=== PATIENT | female | born 1995 | race Caucasian/White ===

== ENCOUNTER 2017-06-07 12:29 | Inpatient (IN) | payer BC ==
[2017-06-07] MEDS ORDERED: LORazepam TAB(*) 1 MG PO ONE (12:45)
[2017-06-07 13:47] LABS: ALT 29 U/L (7-52); AST 21 U/L (13-39); Albumin 3.9 g/dL (3.2-5.2); Alkaline Phosphatase 43 U/L (34-104); Anion Gap 4 mmol/L (2-11); BUN/Creatinine Ratio 9.2 (8-20); Blood Urea Nitrogen 6 mg/dL (6-24); CO2 Carbon Dioxide 28 mmol/L (22-32); Calcium 8.5 mg/dL (8.6-10.3); Chloride 104 mmol/L (101-111); EGFR African American 146.6 (>60); Globulin 2.5 g/dL (2-4); Glucose 87 mg/dL (70-100); Potassium 3.6 mmol/L (3.5-5.0); Sodium 136 mmol/L (133-145); Total Protein 6.4 g/dL (6.4-8.9)
[2017-06-07 13:55] LABS: Urine Bacteria Absent (Absent); Urine Bilirubin Negative (Negative); Urine Glucose Negative (Negative); Urine Nitrite Negative (Negative)
[2017-06-07 14:09] LABS: Benzodiazepine Urine Screen None Detected (None Detect)
[2017-06-07 14:11] LABS: Hematocrit 39 % (35-47); Hemoglobin 13.2 g/dl (12.0-16.0); Mean Corpuscular HGB Conc 34 g/dl (31-36); Mean Corpuscular Hemoglobin 29 pg (27-31); Mean Corpuscular Volume 86 fL (80-97); Mean Platelet Volume 9 um3 (7.4-10.4); Red Blood Count 4.52 10^6/ul (4.0-5.4); Red Cell Distribution Width 13 % (10.5-15)
[2017-06-07 14:13] LABS: Acetaminophen < 15 mcg/mL; Alcohol < 10 mg/dL (<10); Salicylate < 2.50 mg/dL (<30)
[2017-06-07 14:41] LABS: Free T4 < 0.25 ng/dL (0.61-1.12)
--- NOTE | 2017-06-07 15:00 | ED ---
Psychiatric Complaint - HPI Summary HPI Summary: Patient presents to the ED with CC of depression, anxiety and suicidal ideations. She states she has been dealing with this issues for 6-7 months and has tried to take anti-depressants but does not like how it makes her feels, so DC'd. Has never been on anti-anxiety medications. She denies HI. She states she has a"plan" but notes it is much farther in the future once she has all her affairs in order and denies anything currently. Denies HI. Denies self harm. Hx of cheng's and is refusing to take her medication. Denies any physical pain today. Denies SOB, chest discomfort, N/V/C/D. Denies fevers, sweats or chills. - History Of Current Complaint Chief Complaint: [facility]entalHealth Time Seen by Provider: 06/07/17 12:37 Hx Obtained From: Patient Hx Last Menstrual Period: 05/01/15 ?: No Timing: Constant Severity Initially: Moderate Severity Currently: Moderate Character: Depressed, Anxious Aggravating Factor(s): Recent Stress, Medication Non-compliance Alleviating Factor(s): Nothing Associated Signs And Symptoms: Positive: Negative Related History: Positive For: Prior Psychiatric Issues Has Suicidal: Reports: Thoughts, With A Plan - future plans - Risk Factor(s) Completed Suicide Risk Factors: Negative - Allergies/Home Medications Allergies/Adverse Reactions: Allergies Allergy/AdvReac Type Severity Reaction Status Date / Time No Known Allergies Allergy Verified 05/01/16 10:00 Home Medications: Home Medications Thyroid [Nature-Throid] 195 mg PO DAILY 06/07/17 [History Confirmed 06/07/17] PMH/Surg Hx/FS Hx/Imm Hx Previously Healthy: Yes Endocrine/Hematology History: Reports: Hx Thyroid Disease Denies: Hx Anticoagulant Therapy, Hx Diabetes Cardiovascular History: Denies: Hx Hypertension, Hx Pacemaker/ICD Respiratory History: Denies: Hx Asthma, Hx Chronic Obstructive Pulmonary Disease (COPD) GI History: Denies: Hx Ulcer History: Denies: Hx Renal Disease Sensory History: Denies: Hx Hearing Aid Neurological History: Denies: Hx Dementia, Hx Seizures Psychiatric History: Reports: Hx Panic Disorder - PANIC ATTACKS Denies: Hx Eating Disorder, Hx Substance Abuse - Surgical History Surgery Procedure, Year, and Place: RIGHT KNEE SURGERY 05/2010 - Immunization History Hx Pertussis Vaccination: No Immunizations Up to Date: Yes Infectious Disease History: No Infectious Disease History: Denies: Hx Hepatitis, Hx Human Immunodeficiency Virus (HIV), Traveled Outside the [place] in Last 30 Days - Social History Occupation: Employed Part-time Lives: With Family Alcohol Use: Weekly Hx Substance Use: Yes Substance Use Type: Reports: Marijuana Substance Use Comment - Amount & Last Used: daily Hx Tobacco Use: No Smoking Status (MU): Never Smoked Tobacco Review of Systems Constitutional: Negative Eyes: Negative Cardiovascular: Negative Respiratory: Negative Genitourinary: Negative Positive: no symptoms reported, see HPI Skin: Negative Positive: Anxious, Depressed All Other Systems Reviewed And Are Negative: Yes Physical Exam Triage Information Reviewed: Yes Vital Signs On Initial Exam: Initial Vitals Temp Pulse Resp BP Pulse Ox 98.7 F 74 20 119/83 100 06/07/17 12:31 06/07/17 12:31 06/07/17 12:31 06/07/17 12:31 06/07/17 12:31 Vital Signs Reviewed: Yes Appearance: Positive: Well-Appearing, Well-Nourished Skin: Positive: Warm, Skin Color Reflects Adequate Perfusion Head/Face: Positive: Normal Head/Face Inspection Eyes: Positive: EOMI, ANTOINETTE, Conjunctiva Clear Neck: Positive: Supple, No Lymphadenopathy Respiratory/Lung Sounds: Positive: Clear to Auscultation, Breath Sounds Present Cardiovascular: Positive: Normal, RRR, Pulses are Symmetrical in both Upper and Lower Extremities Musculoskeletal: Positive: Normal, Strength/ROM Intact Neurological: Positive: Speech Normal Psychiatric: Positive: Anxious, Depressed - Randee Coma Scale Coma Scale Total: 15 Diagnostics - Vital Signs Vital Signs Temp Pulse Resp BP Pulse Ox 06/07/17 12:52 17 06/07/17 12:31 98.7 F 74 20 119/83 100 - Laboratory Lab Results: Lab Results 06/07/17 06/07/17 06/07/17 Range/Units 13:07 13:07 13:35 WBC 4.0 (3.5-10.8) 10^3/ul RBC 4.52 (4.0-5.4) 10^6/ul Hgb 13.2 (12.0-16.0) g/dl Hct 39 (35-47) % MCV 86 (80-97) fL MCH 29 (27-31) pg MCHC 34 (31-36) g/dl RDW 13 (10.5-15) % Plt Count 215 (150-450) 10^3/ul MPV 9 (7.4-10.4) um3 Neut % (Auto) 59.0 (38-83) % Lymph % (Auto) 32.8 (25-47) % [place] % (Auto) 5.1 (1-9) % Eos % (Auto) 2.5 (0-6) % Baso % (Auto) 0.6 (0-2) % Absolute Neuts (auto) 2.4 (1.5-7.7) 10^3/ul Absolute Lymphs (auto) 1.3 (1.0-4.8) 10^3/ul Absolute Monos (auto) 0.2 (0-0.8) 10^3/ul Absolute Eos (auto) 0.1 (0-0.6) 10^3/ul Absolute Basos (auto) 0 (0-0.2) 10^3/ul Absolute Nucleated RBC 0.01 10^3/ul Nucleated RBC % 0.2 Sodium 136 (133-145) mmol/L Potassium 3.6 (3.5-5.0) mmol/L Chloride 104 (101-111) mmol/L Carbon Dioxide 28 (22-32) mmol/L Anion Gap 4 (2-11) mmol/L BUN 6 (6-24) mg/dL Creatinine 0.65 (0.51-0.95) mg/dL Est GFR ( Amer) 146.6 (>60) Est GFR (Non-Af Amer) 114.0 (>60) BUN/Creatinine Ratio 9.2 (8-20) Glucose 87 (70-100) mg/dL Calcium 8.5 L (8.6-10.3) mg/dL Total Bilirubin 0.30 (0.2-1.0) mg/dL AST 21 (13-39) U/L ALT 29 (7-52) U/L Alkaline Phosphatase 43 (34-104) U/L Total Protein 6.4 (6.4-8.9) g/dL Albumin 3.9 (3.2-5.2) g/dL Globulin 2.5 (2-4) g/dL Albumin/Globulin Ratio 1.6 (1-3) TSH Pending Free T4 < 0.25 L (0.61-1.12) ng/dL Urine Color Urine Appearance Urine pH (5-9) Ur Specific Lillie (1.010-1.030) Urine Protein (Negative) Urine Ketones (Negative) Urine Blood (Negative) Urine Nitrate (Negative) Urine Bilirubin (Negative) Urine Urobilinogen (Negative) Ur Leukocyte Esterase (Negative) Urine WBC (Auto) (Absent) Urine RBC (Auto) (Absent) Ur Squamous Epith Cells (Absent) Urine Bacteria (Absent) Urine Glucose (Negative) Salicylates < 2.50 (<30) mg/dL Urine Opiates Screen None detected (None Detect) Acetaminophen < 15 mcg/mL Ur Barbiturates Screen None detected (None Detect) Ur Phencyclidine Scrn None detected (None Detect) Ur Amphetamines Screen None detected (None Detect) U Benzodiazepines Scrn None detected (None Detect) Urine Cocaine Screen None detected (None Detect) U Cannabinoids Screen Presumptive positive H (None Detect) Serum Alcohol < 10 (<10) mg/dL 06/07/17 Range/Units 13:35 WBC (3.5-10.8) 10^3/ul RBC (4.0-5.4) 10^6/ul Hgb (12.0-16.0) g/dl Hct (35-47) % MCV (80-97) fL MCH (27-31) pg MCHC (31-36) g/dl RDW (10.5-15) % Plt Count (150-450) 10^3/ul MPV (7.4-10.4) um3 Neut % (Auto) (38-83) % Lymph % (Auto) (25-47) % [place] % (Auto) (1-9) % Eos % (Auto) (0-6) % Baso % (Auto) (0-2) % Absolute Neuts (auto) (1.5-7.7) 10^3/ul Absolute Lymphs (auto) (1.0-4.8) 10^3/ul Absolute Monos (auto) (0-0.8) 10^3/ul Absolute Eos (auto) (0-0.6) 10^3/ul Absolute Basos (auto) (0-0.2) 10^3/ul Absolute Nucleated RBC 10^3/ul Nucleated RBC % Sodium (133-145) mmol/L Potassium (3.5-5.0) mmol/L Chloride (101-111) mmol/L Carbon Dioxide (22-32) mmol/L Anion Gap (2-11) mmol/L BUN (6-24) mg/dL Creatinine (0.51-0.95) mg/dL Est GFR ( Amer) (>60) Est GFR (Non-Af Amer) (>60) BUN/Creatinine Ratio (8-20) Glucose (70-100) mg/dL Calcium (8.6-10.3) mg/dL Total Bilirubin (0.2-1.0) mg/dL AST (13-39) U/L ALT (7-52) U/L Alkaline Phosphatase (34-104) U/L Total Protein (6.4-8.9) g/dL Albumin (3.2-5.2) g/dL Globulin (2-4) g/dL Albumin/Globulin Ratio (1-3) TSH Free T4 (0.61-1.12) ng/dL Urine Color Yellow Urine Appearance Cloudy Urine pH 6.0 (5-9) Ur Specific Lillie 1.011 (1.010-1.030) Urine Protein Negative (Negative) Urine Ketones Negative (Negative) Urine Blood 2+ H (Negative) Urine Nitrate Negative (Negative) Urine Bilirubin Negative (Negative) Urine Urobilinogen Negative (Negative) Ur Leukocyte Esterase Trace H (Negative) Urine WBC (Auto) Trace(0-5/hpf) (Absent) Urine RBC (Auto) Trace(0-2/hpf) (Absent) Ur Squamous Epith Cells Present H (Absent) Urine Bacteria Absent (Absent) Urine Glucose Negative (Negative) Salicylates (<30) mg/dL Urine Opiates Screen (None Detect) Acetaminophen mcg/mL Ur Barbiturates Screen (None Detect) Ur Phencyclidine Scrn (None Detect) Ur Amphetamines Screen (None Detect) U Benzodiazepines Scrn (None Detect) Urine Cocaine Screen (None Detect) U Cannabinoids Screen (None Detect) Serum Alcohol (<10) mg/dL Result Diagrams: 06/07/17 13:07 06/07/17 13:07 Lab Statement: Any lab studies that have been ordered have been reviewed, and results considered in the medical decision making process. Course/Dx - Course Course Of Treatment: Patient evaluated for SI and depression. She is sent to [facility] for mental health evaluation. She denies pain, refusing to take her medications at home. She is cleared for MHU. Stable on arrival to [facility] and VS stable. - Differential Dx/Clinical Impression Differential Diagnosis/HQI/PQRI: Positive: Suicide Attempt, Suicidal Ideation, Suicidal Gesture Provider Diagnosis: Suicidal ideation Discharge - Discharge Plan Condition: Stable Disposition: OTHER Discharge Disposition Comment: sent to [facility] unit at this time.
[2017-06-07] MEDS ORDERED: LORazepam INJ* 2 MG/ML 1 ML VIAL ONE (21:11)
[2017-06-07] MEDS: LORazepam INJ* 2 MG/ML 1 ML VIAL IM ONE ×2 (21:16→23:44)
[2017-06-07] MEDS ORDERED: Thyroid TAB* 120 MG PO ONE (22:11)
--- NOTE | 2017-06-07 22:51 | PN ---
Progress Note - Progress Note Date of Service: 06/07/17 Note: Saw pt in a brief visit due to pt's problems and questions about her thyroid replacement tx. Pt had not taken Nature thyroid (which she usually takes 3 grains/day) due to medication shortage. We were able to find in our hospital pharmacy Nancy Thyroid- another preparation of T4 and T3 replacement. Pt voiced multiple concerns that she has to know the "math behind it: re: conversion from Nature Thyroid to Nancy Thyroid. I spoke with pt about our pharmacist being the most capable person in converting the med and preparing the right dose for pt. spoke with our pharmacist and the conversion is 1:1 and pt will be receiving 3 grains of Nancy thyroid daily starting tonight. Next TSH should be checked in 4-6 weeks. Pt mentioned how she "doesn't trust anyone" and is very concerned that her thyroid problems will be delaying her psychiatric tx. overall 20 min were spent on visit ( in face to face with pt and 10 in documentation and conversation with the pharmacist)
[2017-06-08] MEDS ORDERED: Thyroid TAB* 120 MG PO ONE (08:54)
[2017-06-08] MEDS ORDERED: LORazepam TAB(*) 1 MG PO ONE (09:50)
[2017-06-08] MEDS ORDERED: Haloperidol INJ IV/IM* 5 MG/ML AMP IM ONE (10:10)
[2017-06-08] MEDS ORDERED: Al Hydrox/Mg Hydrox/Simet LIQ* 30 ML UDC PO PRN (11:24)
[2017-06-08] MEDS ORDERED: Acetaminophen TAB* 325 MG PO PRN (11:24)
[2017-06-09] MEDS ORDERED: diPHENhydraMINE IV* 50 MG/ML 1 ml VIAL (BENADRYL) IM ONE (00:50)
[2017-06-09] MEDS ORDERED: diPHENhydraMINE IV* 50 MG/ML 1 ml VIAL (BENADRYL) ONE (00:55)
[2017-06-09] MEDS: Thyroid TAB* 120 MG PO SCH (08:28)
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
[2017-06-09 17:41] LABS: Cholesterol 188 mg/dL; LDL Cholesterol 108 mg/dL; Triglycerides 93 mg/dL
[2017-06-09] MEDS: diPHENhydraMINE PO* 50 MG PO SCH (20:17)
[2017-06-10] MEDS: Thyroid TAB* 120 MG PO SCH (08:13)
[2017-06-10] MEDS ORDERED: Ondansetron ODT TAB* 4 MG SL ONE (16:30)
[2017-06-10] MEDS ORDERED: Ondansetron INJ* 2 MG/ML VIAL IM ONE (17:00)
[2017-06-10] MEDS: LORazepam INJ* 2 MG/ML 1 ML VIAL IM SCH (21:43)
[2017-06-10] MEDS: diPHENhydraMINE PO* 50 MG PO SCH (21:44)
[2017-06-11] MEDS: Thyroid TAB* 120 MG PO SCH (08:05)
--- NOTE | 2017-06-11 08:11 | PN ---
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 She developed this in the 11th or 12th grade. She didn't tolerate levothyroxine "I hated it". It caused digestive problems. She went for 6 years without taking any thyroid hormone. She states she is bad at taking pills and "they couldn't tell me what is in it". She was very depressed. She found a practitioner in [place] who would provide Nature Thyroid and felt great on this. She was taking 3 grains per day. However, this preparation became back ordered and she didn't tolerate [place] thyroid - "It gave me energy, but made me angry". She has many symptoms of hypothyroidism - Digestion: very slow - constipation and also slow digestion of food "I can feel my dinner from last night". She is cold intolerant "I am freezing a lot". While not on thyroid hormone she requires 13 hours of sleep and has little energy. She is depressed and "I have crazy mood swings". She worried recently if she was schizophrenic because of psychotic symptoms. She doesn't shower to prevent dry skin. She was on depot provera and just had her first period in 2 years. She has occasional palpitations. Active Problems: Active Problems Myxedema (Acute) E03.9 Psychosis (Acute) Affective disorder, major (Chronic) F32.9 Richard's thyroiditis (Chronic) E06.3 Current Medications: Current Medications Acetaminophen (Tylenol Tab*) 650 mg PO Q4H PRN PRN Reason: for pain; or Temp >101 F Al Hydrox/Mg Hydrox/Simethicone (Maalox Plus*) 30 ml PO Q4H PRN PRN Reason: INDIGESTION Diphenhydramine HCl (Benadryl Po*) 50 mg PO BEDTIME [facility] Last Admin: 06/10/17 21:44 Dose: Not Given Lorazepam (Ativan Inj*) 2 mg IM 2100 [facility] Last Admin: 06/10/17 21:43 Dose: 2 mg Thyroid (Thyroid Tab*) 120 mg PO DAILY [facility] Last Admin: 06/10/17 08:13 Dose: 120 mg Past Medical History: Surgery - arthroscopc right ACL and meniscus repair No other hospitalizations. Home Medications: Home Medications Medication Instructions Recorded Confirmed Type Thyroid [Nature-Throid] 195 mg PO DAILY 06/07/17 06/07/17 History Allergies: Allergies Allergy/AdvReac Type Severity Reaction Status Date / Time Levothyroxine Allergy Unknown Verified 06/08/17 21:27 [From Synthroid] Reaction Details - Family History Family History: FH Hypothyroidism - Mother and maternal uncle. No other autoimmune disease - though she has a sister with sleep paralysis ( narcolepsy can be autoimmune) She has a sister with bipolar disorder, suspects her parents may also have mental health problems but they have not sought professional help. Substance abuse - maternal uncle - alcoholism. Mother alcoholism. Sister - alcoholism. 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 [employer] Objective - Vital Signs Vital Signs: Vital Signs 06/10/17 06/10/17 21:43 22:41 Respiratory 16 16 Rate - Intake and Output Intake and Output: Intake & Output 06/08/17 06/09/17 06/10/17 06/11/17 11:59 11:59 11:59 11:59 Weight 115 lb 115 lb ADLs: Meal Record Start: 06/08/17 14: 42 Freq: Status: Active Created 06/08/17 14:42 System (Rec: 06/08/17 14:42 System [id number]) Intake and Output Start: 06/07/17 12: 33 Freq: Status: Active Created 06/07/17 12:33 System (Rec: 06/07/17 12:33 System [id number]) - Physical Exam General: No Cyanosis, No Anemia, No Jaundice, No Clubbing Thyroid Function: Clinically Hypothyroid - Myxedematous skin -: Yes Tremor, No Goiter, No Thyroid Nodule, No Thyroid Bruit, No Thyroid Tenderness, No Hoarseness, No Cervical adenopathy, No Supraclav. adenopathy, No Proptosis, No Conjunctival Injection, No Lid Lag, No Periorbital Edema, No Dysconjugate Eye Movement Endocrine: No Central Obesity, No Hirsuitism, No Virilism, No Acromegaly, No Vitiligo, No Flushing, No Acanthosis nigricans, No Violaceious striae, No [place] Syndrome, No Buccal pigmenatation, No Pratt Crease Pigmentation Results - Results Lab Results: Laboratory Results - last 24 hr 06/10/17 06/10/17 08:08 08:08 ESR 9 Thyroid Peroxidase Ab 272.11 H Laboratory Tests 06/07/17 06/07/17 06/07/17 13:07 13:07 13:07 WBC 4.0 Hgb 13.2 Hct 39 MCV 86 Plt Count 215 ESR Sodium 136 Potassium 3.6 Chloride 104 Carbon Dioxide 28 Anion Gap 4 BUN 6 Creatinine 0.65 Est GFR (Non-Af Amer) 114.0 Glucose 87 Hemoglobin A1c 4.9 Calcium 8.5 L Total Bilirubin 0.30 AST 21 ALT 29 Triglycerides 93 Cholesterol 188 LDL Cholesterol 108 HDL Cholesterol 61.0 TSH 188.80 H Free T4 < 0.25 L Beta HCG, Quant < 0.60 06/10/17 08:08 WBC Hgb Hct MCV Plt Count ESR 9 Sodium Potassium Chloride Carbon Dioxide Anion Gap BUN Creatinine Est GFR (Non-Af Amer) Glucose Hemoglobin A1c Calcium Total Bilirubin AST ALT Triglycerides Cholesterol LDL Cholesterol HDL Cholesterol TSH Free T4 Beta HCG, Quant Other Results/Reports: Assessment - Problem List Assessment: Patient Problems Myxedema (Acute) Psychosis (Acute) Affective disorder, major (Chronic) Richard's thyroiditis (Chronic) Plan: Myxedema (Acute)/'Psychosis (Acute) This patient presents with what Marck Ley termed "Myxedematous Madness" (Br Med J. 1948May 03;2(1757):196-15. Myxoedematous madness. 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 She recognizes she has had psychosis and was worried she has schizophrenia. She is well aware of her diagnosis of Richard's thyroiditis and primary hypothyroidism. She has profound absence of thyroid hormone by her blood work. I discussed with her the pathophysiology, clinical manifestations, endocrinology of hypothyroidism. In particular, I suggested to her the levothyroxine is a more physiological approach to management than Nature thyroid. If she is intolerant of the plastic dolls mold filler the synthetic thyroid hormone tablets, she should take tirosint which is absent of these fillers. She agrees to this. By weight her calculated dose of thyroid hormone is 88 mcg qdaily (1.7 x weight in Kilograms). I discussed the historical use of liothyronine in psychiatry for depression - both as a primary treatment and for augmentation. She may have been self medicating with T3 in Nature thyroid. Affective disorder, major (Chronic) She wonders if she has bipolar affective disorder, but recognizes this cannot be diagnosed when she is profoundly hypothyroid. She is relieved to learn she is unlikely to have schizophrenia. Richard's thyroiditis (Chronic) She has positive TPO antibodies confirming the diagnosis. I do not think she has Richard's encephalopathy as she is not encephalopathic. I will look for other organ specific autoimmune disease. I discussed the above with the patient and she agrees to follow with me next week as an outpatient at my medical office. 1 hour consultation - complex. *
--- NOTE | 2017-06-11 08:43 | PN ---
Subjective - Subjective Service Type: 44908 Hosp care 15 min low complexity Subjective: NOTE FOR 06/10/17 Encounter: Patient noted to be visible in the milieu, social with female peers, attending groups. Patient has maintained a bright affect since admission. Patient reports improved mood, but reports worsening insomnia. She also reports constipation and abdominal pain as she feels distended from previous meals not moving. Will monitor. Patient reports also nausea and reports she in the past vomits all her meals when she is constipated to this extent. Patient amenable to IM Zofran x1 for nausea and IM Ativan x 1 at bedtime for insomnia. Patient denies SI/HI and AH/VH. She was informed Endocrinology would be by to see her tomorrow. Objective - Appearance Appearance: Well Developed/Nourished, Thin Framed Dysmorphic Features: No Hygiene: Normal Grooming: Well Kept - Behavior Psychomotor Activities: Normal Exhibits Abnormal Movement: No - Attitude and Relatedness Attitude and Relatedness: Cooperative Eye Contact: Good - Speech Quality: Unpressured Latencies: Normal Quantity: Appropriate - Mood Patient's Decription of Mood: "Good" - Affect Observed Affect: Expansive Affect Consistent with: Euthymia - Thought Process Patient's Thought Process: Coherent Thought Content: No Passive Wish, No Suicidal Planning, No Homicidal Ideation, No Paranoid Ideation - Sensorium Experiencing Hallucinations: No, Sensorium is Clear Type of Hallucinations: Visual: No, Auditory: No, Command: No - Level of Consciousness Level of Consciousness: Alert Orientation: Yes Intact, Yes Orientated to Time, Yes Orientated to Place, Yes Orientated to Person - Impulse Control Impulse Control: Intact - Insight and Judgement Insight and Judgement: Fair - Group Participation Particating in Group Activities: Yes - Medication Management Medication Management Adherence: Yes Assessment - Assessment Merits Inpatient Hospitalization: For Immediate Safety, For Stabilization Inpatient DSM-IV Dx: 1. 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 2. Depressive d/o due to another medical condition (Hypothyroidism vs Richard's encephalopathy). 3. Panic Disorder. 4. Personality d/o, unspecified (cluster B traits). 5. Cannabis use d/o, severe Plan - Plan Treatment Plan: Name: ESTHER FARMER Birthdate: 1995 [id number] PLAN: ------ 1. Continue admission to [facility] for safety and symptom mx. 2. Thyroid Peroxidase Ab - elevated at 272.11 and Thyroglobulin Ab- PENDING and ESR - 9 wnl. 3. Will consult Endocrine to eval and treat current presentation. 4. Continue [place] Thyroid replacement at home dose. Per [facility] pharmacist, Nature Thyroid is not available but [place] Thyroid is appropriate until Nature Thyroid is available. 5. Continue Benadryl 50mg po qhs for anxiety/insomnia. 6. IM Zofran x1 for nausea and IM Ativan x 1 at bedtime for insomnia. 7. Continue compiling collateral information from family and outpt providers. 8. Patient to participate in milieu activities and groups. Continued Medication Management: Different Medication Medications: Current Medications Acetaminophen (Tylenol Tab*) 650 mg PO Q4H PRN PRN Reason: for pain; or Temp >101 F Al Hydrox/Mg Hydrox/Simethicone (Maalox Plus*) 30 ml PO Q4H PRN PRN Reason: INDIGESTION Diphenhydramine HCl (Benadryl Po*) 50 mg PO BEDTIME [facility] Last Admin: 06/10/17 21:44 Dose: Not Given Lorazepam (Ativan Inj*) 2 mg IM 2100 [facility] Last Admin: 06/10/17 21:43 Dose: 2 mg Thyroid (Thyroid Tab*) 120 mg PO DAILY [facility] Last Admin: 06/11/17 08:05 Dose: 120 mg - Discharge Plan Discharge Plan: Outpatient Follow Up
--- NOTE | 2017-06-11 10:26 | PN ---
Subjective - Subjective Service Type: 00792 Hosp care 15 min low complexity Subjective: Patient again noted to be visible in the milieu, social with female peers, attending groups. Patient at the med window on my approach. She reports compliance with [place] Thyroid. She reports no med s/e's. She reports increased energy on [place] Thyroid, but reports it is a restless energy. She reports improved sleep last night with the IM Ativan dose. She reports less anxiety today. Patient understands she will not discharge on Ativan. She reports understanding. Patient seen by Endocrine today. She was informed by Dr. Carlson that his recommendation is to stop [place] Thyroid and start Tirosint capsules at 88mcg daily. This pill is natural and does not contain the binders and fillers found in Levothyroxine which patient is likely allergic to. Patient reports ongoing improved mood and energy on Silva. She is aware [place] Thyroid will continue until she follows up with Dr. Carlson in his clinic next week. She will then d/c [place] Thyroid and get a Rx for Tirosint. Tirosint is not available in the hospital formulary. Patient reports improved abd pain and constipation. She reports improved appetite today. Patient denies SI/HI and AH/VH. Patient denies paranoid ideations. She is future oriented in [place] reporting desire to start looking for a new job. Patient requests discharge tomorrow. Objective - Appearance Appearance: Well Developed/Nourished, Thin Framed Dysmorphic Features: No Hygiene: Normal Grooming: Fairly Well Kept - Behavior Psychomotor Activities: Normal Exhibits Abnormal Movement: No - Attitude and Relatedness Attitude and Relatedness: Cooperative Eye Contact: Good - Speech Quality: Unpressured Latencies: Normal Quantity: Appropriate - Mood Patient's Decription of Mood: "Okay" - Affect Observed Affect: Tense Affect Consistent with: Euthymia - Thought Process Patient's Thought Process: Coherent Thought Content: No Passive Wish, No Suicidal Planning, No Homicidal Ideation, No Paranoid Ideation - Sensorium Experiencing Hallucinations: No, Sensorium is Clear Type of Hallucinations: Visual: No, Auditory: No, Command: No - Level of Consciousness Level of Consciousness: Alert Orientation: Yes Intact, Yes Orientated to Time, Yes Orientated to Place, Yes Orientated to Person - Impulse Control Impulse Control: Intact - Insight and Judgement Insight and Judgement: Good - Group Participation Particating in Group Activities: Yes - Medication Management Medication Management Adherence: Yes Assessment - Assessment Merits Inpatient Hospitalization: For Immediate Safety, For Stabilization Inpatient DSM-IV Dx: 1. 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 2. Depressive d/o due to another medical condition (Hypothyroidism). 3. Panic Disorder. 4. Personality d/o, unspecified (cluster B traits). 5. Cannabis use d/o, severe Plan - Plan Treatment Plan: Name: ESTHER FARMER Birthdate: 1995 [id number] PLAN: ------ 1. Continue admission to [facility] for safety and symptom mx. 2. Thyroid Peroxidase Ab - elevated at 272.11 and Thyroglobulin Ab- PENDING and ESR - 9 wnl. 3. Appreciate Endocrine consultation. Plan for patient to f/u in Dr. Carlson's office next week for ongoing mx. 5. Continue Amour Thyroid replacement at current dose. 6. Continue Benadryl 50mg po qhs for anxiety/insomnia. 7. Continue IM Ativan x 1 at bedtime for insomnia. 8. Continue compiling collateral information from family. 9. Tentative discharge tomorrow. 10. Patient to participate in milieu activities and groups. Continued Medication Management: Continue Outpt Medication Medications: Current Medications Acetaminophen (Tylenol Tab*) 650 mg PO Q4H PRN PRN Reason: for pain; or Temp >101 F Al Hydrox/Mg Hydrox/Simethicone (Maalox Plus*) 30 ml PO Q4H PRN PRN Reason: INDIGESTION Diphenhydramine HCl (Benadryl Po*) 50 mg PO BEDTIME [facility] Last Admin: 06/10/17 21:44 Dose: Not Given Lorazepam (Ativan Inj*) 2 mg IM 2100 [facility] Last Admin: 06/10/17 21:43 Dose: 2 mg Thyroid (Thyroid Tab*) 120 mg PO DAILY [facility] Last Admin: 06/11/17 08:05 Dose: 120 mg - Discharge Plan Discharge Plan: Outpatient Follow Up Outpatient Program: Private Clinician(s) - Patient to see Endocrinology - Dr. Carlson in his outpt office w/in 1 week of discharge.
--- NOTE | 2017-06-11 16:41 | PN ---
[facility]: Group Therapy Note - Service Type Service Type: [id number] Group Psychotherapy - Medication Education Group: Patient was attentive and participatory in group, and remained in good behavioral control. Patient expressed positive insights regarding relevant treatment interventions. Patient stated understanding of material discussed and had appropriate questions.
[2017-06-11] MEDS: diPHENhydraMINE PO* 50 MG PO SCH (20:15)
[2017-06-11] MEDS: LORazepam INJ* 2 MG/ML 1 ML VIAL IM SCH (20:17)
[2017-06-12] MEDS: Thyroid TAB* 120 MG PO SCH (08:17)
[2017-06-12 09:29] VITALS: BP 113/73
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
--- NOTE | 2017-06-12 11:57 | PN ---
MHU: Group Therapy Note - Service Type Service Type: 52598 Group Psychotherapy - Cognitive Behavioral Group Therapy ( CBT):Patient was attentive and participatory in CBT programming this morning, and remained in good behavioral control. Patient expressed positive insights regarding relevant treatment interventions and goals.
--- NOTE | 2017-06-12 21:37 | CONS ---
PSYCHOLOGICAL REPORT: DATE OF CONSULT: 06/11/17 REASON FOR REFERRAL: Brandi was referred for personality testing secondary to concerns regarding possible affective disturbance including possible bipolar disorder as well as psychosis. The patient has reported experiencing perceptual disturbances occurring both visually, auditorily as well as olfactory and tactile. TEST ADMINISTERED: Brandi completed the [place] Multiphasic Personality Inventory- 2 (MMPI-2) as well as the Rorschach Inkblot projective examination. RELEVANT HISTORY: Brandi was admitted secondary to endorsing difficulties with worsening depression and stressors occurring primarily in the context of her employment. 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 She describes recurrent difficulties with inappropriate touching as well as other behaviors directed both her as well as her peers that she characterizes as being harassing in nature. Of significance is Brandi's diagnosis of hypothyroidism, which of late has not been adequately controlled. She describes running out of medications secondary to what she describe as a national shortage and has been reluctant to comply with more conventional interventions to address her thyroid issues. 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 She currently expresses disinterest in pursuing educational pursuits and instead hopes to establish career track in the [employer] business. Although she is very dissatisfied with her current employment situation, she is hopeful of finding new work as she finds her experiences to be financially rewarding. She describes having a stable place to live with support of housemate. She describes having "on and off boyfriend" for the past four years but is unsure if this is an enduring relationship presently. BEHAVIORAL PRESENTATION: Brandi is very energetic, 22-year-old female , who is spontaneous in speech and presents with good affect that is euthymic. She has been very active in group programming, spontaneously asking questions and relating clinical discussion to personal experience with good insight and judgment. She is active with peers as well and engages in an empathic fashion. She is currently future oriented, describing various hopes of attaining employment in the near future. In fact describes her intentions of getting applications into several area restaurants once discharged. TEST RESULTS: Brandi provided an extremely exaggerated validity scale response set on this administration of the MMPI-2 where she clearly has over endorsed emotional duress and various psychiatric pathologies. Her endorsement of stress was literally off the charts on 2 of the 3 emotional duress scales, with concomitant very low scoring occurring on the emotional coping and self-esteem scales. She subsequently elevates all clinical indices except the masculine- feminine and social introversion scales. Her most profound elevation occurs in the context of paranoia and in other psychotic range indices. Her lowest clinical elevation occurs on depression. However, it should be noted that her scoring should not be taken in a literal fashion as she is engaging in a "cry for help" response set here. The Rorschach was administered to assess for any effects that may be related to psychotic range thoughts and/or bipolar disturbance characterized by nyasia. Brandi is able to provide very clear responses throughout the Rorschach that reflect good reality contact. She uses form in conventional and easily accessible fashion with concerns regarding some morbid, and/or aggressive percepts. In discussion, addressed some dysphoria and her current emotional experience with Brandi discussing the aforementioned stressors at work primarily. She provides 15 responses overall, which is felt to contradict concerns regarding hypomania, nor does it reflect any psychotic problems. IMPRESSIONS AND RECOMMENDATIONS: Brandi felt discussion addressing borderline personality traits to some degree in her difficulties in relationships particularly. Her current difficulties controlling hypothyroidism as well as her historical endorsement of perceptual abnormalities appear to be in the context of medical condition rather than that of clear and presenting psychiatric disturbance. She expresses positive insights regarding her need to follow up in terms of medical attention with Dr. Carlson, and also expressed willingness to initiate mental health treatment. Continuing the mental health treatment may be better suited to further educate Brandi regarding borderline characterological vulnerabilities with an emphasis on management of anger and interpersonal stability. [id number]/[facility] #: [id number] GLENNY
== END 2017-06-12 14:20 | disposition home or self-care (01) | DRG 424 ==
LOC: ED 12:29 → BSU 06-08 11:24
PROVIDERS: ADMIT Psychiatry & Neurology Psychiatry; ATTEND Psychiatry & Neurology Psychiatry
DX: E03.9 Hypothyroidism, unspecified (principal); R45.851 Suicidal ideations; F06.8 Other specified mental disorders due to known physiological condition; E06.3 Autoimmune thyroiditis; F06.32 Mood disorder due to known physiological condition with major depressive-like episode; F41.0 Panic disorder [episodic paroxysmal anxiety]; F60.9 Personality disorder, unspecified; F12.10 Cannabis abuse, uncomplicated; Z88.8 Allergy status to other drugs, medicaments and biological substances
CPT/HCPCS: 36415; 80053; 80061; 80307; 80320; 80329; 81003; 81015; 83036; 84439; 84443; 84702; 85025; 85652; 86376; 86800; 87086; 90853; 96102; 99222; 99231; 99238; A9270-GY; G0480; J1200; J2060

== ENCOUNTER 2018-04-15 18:47 | Emergency (ER) | payer BC ==
[2018-04-15] MEDS ORDERED: Ketorolac INJ* 30 MG/ML 1 ML VIAL IV PUSH ONE (19:46)
[2018-04-15 20:01] LABS: ABS Basophils 0 10^3/ul (0-0.2); ABS Eosinophils 0.1 10^3/ul (0-0.6); ABS Lymphocytes 1.6 10^3/ul (1.0-4.8); ABS Monocytes 0.4 10^3/ul (0-0.8); ABS Neutrophils 2.4 10^3/ul (1.5-7.7); ABS Nucleated RBC 0 10^3/ul; Hematocrit 37 % (35-47); Hemoglobin 12.8 g/dl (12.0-16.0); Lymphocyte % 36.1 % (25-47); Mean Corpuscular HGB Conc 34 g/dl (31-36); Mean Corpuscular Hemoglobin 29 pg (27-31); Mean Corpuscular Volume 86 fL (80-97); Mean Platelet Volume 7.7 um3 (7.4-10.4); Nucleated Red Blood Cells % 0; Platelet Count 222 10^3/ul (150-450); Red Blood Count 4.35 10^6/ul (4.00-5.40); Red Cell Distribution Width 13 % (10.5-15); White Blood Count 4.5 10^3/ul (3.5-10.8)
--- NOTE | 2018-04-15 20:08 | ED ---
Abdominal Pain/Female - HPI Summary HPI Summary: Pt is a 23 year old female who has been having horrible pains in her lower abd area since she woke up this morning at 1140. She usually this type of pain on the left side, so she thinks it is an ovarian cyst, but the pain is on her R side. Pts LNMP was on the 19 of March and on the 28 of March. Pt states that she is sexually active, but there is no chance she is because she hasnt had sex since her last test. [facility]. Pt states she is currently nauseous, and has a hx of cancers in her family. Pt denies smoking or drinking, and any hx of diabetes or HTN. NKDA. - History of Current Complaint Chief Complaint: EDAbdPain Stated Complaint: ABD PAIN Time Seen by Provider: 04/15/18 19:45 Hx Obtained From: Patient Hx Last Menstrual Period: 05/01/15 ?: No Onset/Duration: Sudden Onset, Lasting Hours - since awakening at 1140 this morning Timing: Constant Severity Initially: Moderate Severity Currently: Moderate Pain Intensity: 7 Pain Scale Used: 0-10 Numeric Location: Discrete At: RUQ, Suprapubic - R side Character: Cramping Allergies/Adverse Reactions: Allergies Allergy/AdvReac Type Severity Reaction Status Date / Time MS Levothyroxine Allergy Unknown Verified 04/15/18 19:01 [From Synthroid] Reaction Details PMH/Surg Hx/FS Hx/Imm Hx Previously Healthy: No Endocrine/Hematology History: Reports: Hx Thyroid Disease Denies: Hx Anticoagulant Therapy, Hx Diabetes, Hx Anemia Cardiovascular History: Denies: Hx Hypertension, Hx Pacemaker/ICD Respiratory History: Denies: Hx Asthma, Hx Chronic Obstructive Pulmonary Disease (COPD) GI History: Denies: Hx Jaundice, Hx Ulcer History: Denies: Hx Renal Disease Sensory History: Denies: Hx Cataracts, Hx Contacts or Glasses, Hx Hearing Aid Opthamlomology History: Denies: Hx Cataracts, Hx Contacts or Glasses Neurological History: Denies: Hx Dementia, Hx Seizures Psychiatric History: Reports: Hx Panic Disorder - PANIC ATTACKS Denies: Hx Eating Disorder, Hx of Violent Episodes Against Others, Hx Substance Abuse - Surgical History Surgery Procedure, Year, and Place: RIGHT KNEE SURGERY 05/2010 Infectious Disease History: No Infectious Disease History: Denies: Hx Hepatitis, Hx Human Immunodeficiency Virus (HIV), Traveled Outside the [place] in Last 30 Days - Family History Known Family History: Positive: Other - cancers Negative: Hypertension, Diabetes - Social History Alcohol Use: Rare Alcohol Amount: "2 weeks ago for the first time 3 glasses of alcohol." Hx Substance Use: Yes Substance Use Type: Reports: Marijuana Substance Use Comment - Amount & Last Used: "Dab marijuana- pure THC". Smokes marijuana daily Hx Tobacco Use: No Smoking Status (MU): Never Smoked Tobacco Amount Used/How Often: Patient have not smoked tobacco or tobacco alternative within 30 days. Review of Systems Negative: Fever Positive: Abdominal Pain - RUQ and R periumbilical, Nausea All Other Systems Reviewed And Are Negative: Yes Physical Exam - Summary Physical Exam Summary: Appearance: Well appearing, no pain distress Skin: warm, dry, reflects adequate perfusion Head/face: normal Eyes: EOMI, ANTOINETTE ENT: normal Neck: supple, non-tender Respiratory: CTA, breath sounds present Cardiovascular: RRR, pulses symmetrical Abdomen: Pelvic pain, positive McBurneys point, positive psoas and obturator. No rebound or guarding. Bowel Sounds: present Musculoskeletal: normal, strength/ROM intact Neuro: normal, sensory motor intact, A&Ox3 Triage Information Reviewed: Yes Vital Signs On Initial Exam: Initial Vitals Temp Pulse Resp BP Pulse Ox 98.4 F 97 18 103/78 98 04/15/18 18:57 04/15/18 18:57 04/15/18 18:57 04/15/18 18:57 04/15/18 18:57 Vital Signs Reviewed: Yes Diagnostics - Vital Signs Vital Signs Temp Pulse Resp BP Pulse Ox 04/15/18 18:57 98.4 F 97 18 103/78 98 - Laboratory Lab Results: Lab Results 04/15/18 Range/Units 19:54 WBC 4.5 (3.5-10.8) 10^3/ul RBC 4.35 (4.00-5.40) 10^6/ul Hgb 12.8 (12.0-16.0) g/dl Hct 37 (35-47) % MCV 86 (80-97) fL MCH 29 (27-31) pg MCHC 34 (31-36) g/dl RDW 13 (10.5-15) % Plt Count 222 (150-450) 10^3/ul MPV 7.7 (7.4-10.4) um3 Neut % (Auto) 52.7 (38-83) % Lymph % (Auto) 36.1 (25-47) % [place] % (Auto) 8.7 H (0-7) % Eos % (Auto) 2.0 (0-6) % Baso % (Auto) 0.5 (0-2) % Absolute Neuts (auto) 2.4 (1.5-7.7) 10^3/ul Absolute Lymphs (auto) 1.6 (1.0-4.8) 10^3/ul Absolute Monos (auto) 0.4 (0-0.8) 10^3/ul Absolute Eos (auto) 0.1 (0-0.6) 10^3/ul Absolute Basos (auto) 0 (0-0.2) 10^3/ul Absolute Nucleated RBC 0 10^3/ul Nucleated RBC % 0 Result Diagrams: 04/15/18 19:54 04/15/18 19:54 Lab Statement: Any lab studies that have been ordered have been reviewed, and results considered in the medical decision making process. - CT No standard instances CT Interpretation: No Acute Changes - No CT findings to correlate with patient' s symptomatology. Specifically no appendicitis. CT Interpretation Completed By: Radiologist - ED physician has reviewed this report. - Ultrasound No standard instances Ultrasound Interpretation: Positive (See Comments) - Transvaginal US: 1. Small left ovarian hemorrhagic cyst. ACR White Paper guidelines (Lucero, et. al. Radiology 2010; 256(3):943-954) suggest that no follow-up is necessary. 2. Well- positioned IUD. Appendix US: Nonvisualized appendix with no secondary findings to suggest appendicitis. ED physician has reviewed this report. Ultrasound Interpretation Completed By: Radiologist Re-Evaluation - Re-Evaluation 2143 Re-Evaluation Time: 21:44 Change: Improved Comment: Feeling better, started period as well Abdominal Pain Fem Course/Dx - Course Course Of Treatment: She presents with right lower quadrant pain and currently starting her menses. Her CT scan is negative for appendicitis. Ultrasound also felt to demonstrate enlarged appendix. There is left ovarian cyst visualized. She recently had bacterial vaginosis but has no vaginal discharge now. Urine was tested for GC/chlamydia. She was treated with Toradol here and had significant relief. She was moving freely without pain. Her white blood cell count is normal and her CRP is less than 1. Discharged follow closely with her primary care physician. - Diagnoses Differential Diagnosis: Positive: Appendicitis, Bowel Obstruction, Ectopic , Ovarian Cyst, Pancreatitis, Pelvic Inflammatory Disease, , Urinary Tract Infection Provider Diagnoses: Left ovarian cyst, Dysmenorrhea Discharge - Sign-Out/Discharge Documenting (check all that apply): Patient Departure - Discharge Plan Condition: Improved Disposition: HOME Prescriptions: Naproxen [Naproxen 500 mg tab] 500 mg PO BID PRN #12 tablet.dr ASH Reason: Pain Patient Education Materials: Ovarian Cyst (ED) Referrals: Melissa Jimenez [Primary Care Provider] - Additional Instructions: Call your family doctor first thing in the morning to follow-up. Follow-up with an [employer] a few have one. Return with fever, increased discomfort, vaginal discharge, worse or other concerns as discussed. - Billing Disposition and Condition Condition: IMPROVED Disposition: Home - Attestation Statements Document Initiated by Ishanibe: Yes Documenting Scribe: Gail Johnston Provider For Whom Pradeep is Documenting (Include Credential): Indra Beltrán MD. Scribe Attestation: Gail Silver scribed for Indra Beltrán MD. on 04/15/18 at 2318. Scribe Documentation Reviewed: Yes Provider Attestation: The documentation as recorded by the scribeGail accurately reflects the service I personally performed and the decisions made by , Indra Beltrán MD.
[2018-04-15 20:20] LABS: EGFR Non-African American 121.5 (>60)
[2018-04-15] MEDS ORDERED: Iohexol 300* (CONTRAST) 10 ML SDV IV ONE (20:29)
[2018-04-15 20:32] LABS: Urine Appearance Cloudy; Urine Blood 3+ (Negative); Urine Color Yellow; Urine Ketones Negative (Negative); Urine Protein Negative (Negative); Urine Red Blood Cell 1+(3-5/hpf) (Absent); Urine Urobilinogen Negative (Negative); Urine White Blood Cell 2+(11-20/hpf) (Absent)
--- NOTE | 2018-04-15 21:29 | RAD ---
EXAM: CT Abdomen and Pelvis With Intravenous Contrast CLINICAL HISTORY: 23 years old, female; Pain; Abdominal pain; Flank; Right lower quadrant (rlq); Additional info: Rlq pain. Onset appx 1140 this am of r sided abd pain also feels nauseated still has her appendix HX of ovarian cysts in past. end TECHNIQUE: Axial computed tomography images of the abdomen and pelvis with intravenous contrast. All CT scans at this facility use at least one of these dose optimization techniques: automated exposure control; mA and/or kV adjustment per patient size (includes targeted exams where dose is matched to clinical indication); or iterative reconstruction. Coronal and sagittal reformatted images were created and reviewed. CONTRAST: 71 mL of OMNI 300 administered intravenously. COMPARISON: A/P W CT ABD/PEL W 05/31/2013 2:44 AM FINDINGS: Lung bases: Normal. No mass. No consolidation. ABDOMEN: Liver: Normal. No masses. Portal and hepatic veins are patent. Gallbladder and bile ducts: Normal. No radiopaque calculi. No ductal dilation. Pancreas: Normal. No mass. No ductal dilation. Spleen: Normal. No splenomegaly. Adrenals: Normal. No mass. Kidneys and ureters: Several bilateral nonobstructing renal calculi. No pelvocaliectasis. Stomach and bowel: Incompletely distended grossly normal stomach. Normal caliber small bowel. No colonic masses or segmental wall thickening. PELVIS: Appendix: Normal caliber appendix without wall thickening or adjacent inflammation. Bladder: Normal. No mass. Reproductive: Uterus and ovaries are normal. IUD in expected position within the endometrial canal. ABDOMEN and PELVIS: Intraperitoneal space: Small simple physiologic free fluid in the pelvic cul-de-sac. Bones/joints: No fractures. No suspicious bone lesions. Soft tissues: Normal. No hernias. Vasculature: Normal caliber aorta with no evidence of dissection or rupture. Patent IVC. Retroaortic left renal vein. Lymph nodes: Normal. No enlarged lymph nodes. IMPRESSION: No CT findings to correlate with patient's symptomatology. Specifically no appendicitis.
--- NOTE | 2018-04-15 21:44 | RAD ---
EXAM: US Abdomen Limited, Appendix CLINICAL HISTORY: 23 years old, female; Pain; Other: Rlq; Additional info: Rlq/r pelvic pain TECHNIQUE: Real-time ultrasound of the right lower quadrant with image documentation. COMPARISON: A/P W CT ABD/PEL W 04/15/2018 8:42 PM FINDINGS: Appendix: Appendix not visualized. No right lower quadrant hyperemia, rebound pain, or abnormal lymph nodes. Free fluid: No free fluid. IMPRESSION: Nonvisualized appendix with no secondary findings to suggest appendicitis.
[2018-04-15] MEDS ORDERED: HYDROcodone/ACETAMIN 5-325 MG* 1 TAB PO ONE (21:45)
--- NOTE | 2018-04-15 21:55 | RAD ---
EXAM: US Pelvis, Transvaginal CLINICAL HISTORY: 23 years old, female; Pain; Pelvic pain; Additional info: R pelvic, rlq pain TECHNIQUE: Real-time transvaginal pelvic ultrasound (complete) with image documentation. Transvaginal imaging was used for better evaluation of the endometrium and adnexa. COMPARISON: TRANS US TRANSVAGINAL 05/30/2013 10:32 PM FINDINGS: Uterus/cervix: Anteverted anteflexed. Measures 7.9 x 4.5 x 3.1 cm (58 cc). No myometrial masses. Late proliferative phase endometrium measuring 0.6 cm. IUD in expected position within the endometrial canal. Right ovary: Right ovary measures 2.6 x 1.5 x 1.2 cm (2.5 cc). Normal size and echogenicity with no masses. Normal follicles. Normal arterial and venous waveforms. Left ovary: Left ovary measures 3.0 x 2.9 x 2.2 cm (10 cc). Small hypoechoic nonvascular focus with slightly hyperechoic rim measures 2.2 x 1.8 x 1.8 cm. Normal arterial and venous waveforms. Normal blood flow. Free fluid: No free fluid. Bladder: Empty bladder which cannot be evaluated with this probe. IMPRESSION: 1. Small left ovarian hemorrhagic cyst. ACR White Paper guidelines (Lucero, et. al. Radiology 2010; 256(3):943-954) suggest that no follow-up is necessary. 2. Well-positioned IUD.
[2018-04-15 22:08] VITALS: BP 112/60
== END 2018-04-15 22:07 | disposition home or self-care (01) ==
LOC: ED 18:47
DX: N83.202 Unspecified ovarian cyst, left side (principal); N94.6 Dysmenorrhea, unspecified; R10.11 Right upper quadrant pain; R11.0 Nausea
CPT/HCPCS: 36415; 74177; 76705; 76830; 80053; 81003; 81015; 83605; 83690; 84702; 85025; 86140; 87086; 87491; 87591; 96374; 99282; J1885; Q9967

== ENCOUNTER 2018-06-12 17:17 | Emergency (ER) | payer BC ==
[2018-06-12 17:20] VITALS: BP 123/75
--- NOTE | 2018-06-12 18:00 | ED ---
Lower Extremity - HPI Summary HPI Summary: 23 year old female presents with left knee pain for the past couple days. She states that she went to jump up to hug someone and she twisted her knee. States she's knee has been swelling. She states she has ACL and meniscus surgery on her right knee. She states it feels similar. She denies any numbness or tingling. States pain hurts worse tries to ambulate on it. no fevers. Has been taking ibuprofen for pain. - History of Current Complaint Chief Complaint: EDExtremityLower Stated Complaint: LT KNEE INJURY Time Seen by Provider: 06/12/18 17:37 Hx Last Menstrual Period: 05/01/15 Pain Intensity: 4 - Allergies/Home Medications Allergies/Adverse Reactions: Allergies Allergy/AdvReac Type Severity Reaction Status Date / Time Levothyroxine Allergy Unknown Verified 04/15/18 19:01 [From Synthroid] Reaction Details PMH/Surg Hx/FS Hx/Imm Hx Endocrine/Hematology History: Reports: Hx Thyroid Disease Denies: Hx Anticoagulant Therapy, Hx Diabetes, Hx Anemia Cardiovascular History: Denies: Hx Hypertension, Hx Pacemaker/ICD Respiratory History: Denies: Hx Asthma, Hx Chronic Obstructive Pulmonary Disease (COPD) GI History: Denies: Hx Jaundice, Hx Ulcer History: Denies: Hx Renal Disease Sensory History: Denies: Hx Cataracts, Hx Contacts or Glasses, Hx Hearing Aid Opthamlomology History: Denies: Hx Cataracts, Hx Contacts or Glasses Neurological History: Denies: Hx Dementia, Hx Seizures Psychiatric History: Reports: Hx Panic Disorder - PANIC ATTACKS Denies: Hx Eating Disorder, Hx of Violent Episodes Against Others, Hx Substance Abuse - Surgical History Surgery Procedure, Year, and Place: RIGHT KNEE SURGERY 05/2010 Infectious Disease History: No Infectious Disease History: Denies: Hx Hepatitis, Hx Human Immunodeficiency Virus (HIV), Traveled Outside the [place] in Last 30 Days - Family History Known Family History: Positive: Other - cancers Negative: Hypertension, Diabetes - Social History Alcohol Use: Rare Alcohol Amount: "2 weeks ago for the first time 3 glasses of alcohol." Hx Substance Use: Yes Substance Use Type: Reports: Marijuana Substance Use Comment - Amount & Last Used: "Dab marijuana- pure THC". Smokes marijuana daily Hx Tobacco Use: No Smoking Status (MU): Never Smoked Tobacco Amount Used/How Often: Patient have not smoked tobacco or tobacco alternative within 30 days. Review of Systems Negative: Fever Negative: Chest Pain Negative: Shortness Of Breath Positive: Myalgia - left knee pain All Other Systems Reviewed And Are Negative: Yes Physical Exam Triage Information Reviewed: Yes Vital Signs On Initial Exam: Initial Vitals Temp Pulse Resp BP Pulse Ox 98.4 F 86 16 123/75 99 06/12/18 17:18 06/12/18 17:18 06/12/18 17:18 06/12/18 17:18 06/12/18 17:18 Vital Signs Reviewed: Yes Appearance: Positive: Well-Appearing Skin: Positive: Warm, Dry Head/Face: Positive: Normal Head/Face Inspection Eyes: Positive: Normal, Conjunctiva Clear ENT: Positive: Pharynx normal Respiratory/Lung Sounds: Positive: Clear to Auscultation, Breath Sounds Present Cardiovascular: Positive: Normal, RRR Musculoskeletal: Positive: Limited @ - left knee, Other - pos ballotment, no laxity to joint, tenderness medial aspect of left knee, good pulses, sensation grossly intact Neurological: Positive: Normal Psychiatric: Positive: Normal Diagnostics - Vital Signs Vital Signs Temp Pulse Resp BP Pulse Ox 06/12/18 17:18 98.4 F 86 16 123/75 99 - Laboratory Lab Statement: Any lab studies that have been ordered have been reviewed, and results considered in the medical decision making process. - Radiology knee Xray Interpretation: No Acute Changes Radiology Interpretation Completed By: ED Physician Lower Extremity Course/Dx - Course Course Of Treatment: 23 year old female presents with left knee pain for the past couple days. She states that she went to jump up to hug someone and she twisted her knee. States she's knee has been swelling. She states she has ACL and meniscus surgery on her right knee. She states it feels similar. She denies any numbness or tingling. States pain hurts worse tries to ambulate on it. no fevers. Has been taking ibuprofen for pain. On exam positive ballottement. Tenderness over the medial aspect left knee. Neurovascular intact. X-ray normal. We'll give her crutches and immobilizer. told to follow up with ortho. Patient understands and agrees with plan. - Diagnoses Differential Diagnosis/HQI/PQRI: Positive: Fracture (Closed), Sprain, Strain Provider Diagnoses: Left knee pain Discharge - Sign-Out/Discharge Documenting (check all that apply): Patient Departure - Discharge Plan Condition: Good Disposition: HOME Patient Education Materials: Knee Pain (ED) Referrals: Melissa Jimenez [Primary Care Provider] - John Golden MD [Medical Doctor] - Additional Instructions: Use immobilizer Stay off knee as much as possible Ice, elevate, Ibuprofen or Tylenol every 6 hours for pain Follow up with ortho if no improvement Return to ED if develop or any new or worsening symptoms - Billing Disposition and Condition Condition: GOOD Disposition: Home
[2018-06-12] MEDS ORDERED: Ketorolac INJ* 30 MG/ML 1 ML VIAL IM ONE (18:45)
--- NOTE | 2018-06-13 07:42 | RAD ---
HISTORY: left knee pain COMPARISONS: None VIEWS: 4 , Frontal, lateral, axial, and oblique views of the left knee FINDINGS: BONE DENSITY: Normal. BONES: There is no displaced fracture. JOINTS: There is no arthropathy. There is no suprapatellar joint effusion or lipohemarthrosis. ALIGNMENT: There is no dislocation. SOFT TISSUES: Unremarkable. OTHER FINDINGS: None. IMPRESSION: NO ACUTE OSSEOUS INJURY. IF SYMPTOMS PERSIST, RECOMMEND REPEAT IMAGING. R1
== END 2018-06-12 19:00 | disposition home or self-care (01) ==
LOC: ED 17:17
DX: M25.562 Pain in left knee (principal); Z88.8 Allergy status to other drugs, medicaments and biological substances
CPT/HCPCS: 96372; 99282; J1885

== ENCOUNTER 2019-01-01 16:26 | Emergency (ER) | payer BC ==
--- NOTE | 2019-01-01 16:49 | UC ---
Abdominal Pain Female HPI - HPI Summary HPI Summary: 23 yo female presents with pelvic pain and vaginal bleeding for the last week. She tells me that she has a long history of fairly constant brown vaginal discharge most days of the month. She gets her period around the 22nd of every month and has about 2 days of heavy bleeding and then a day of no bleeding and then 2-3 days of heavy bleeding again. She uses tampons and pads at the same time due to amount of bleeding. She says this is not unusual - she tells me [facility] and [facility] normal. Over the last week she has had significantly increased lower abdominal pain and increased brown vaginal discharge with black/maroon large clots of blood. Today she tells me that she cannot stand up straight due to her pain. She has had a copper IUD for the last 1.5 - 2 years. She "cannot remember the last time she had sex as it was so long ago". Has not taken anything OTC for her symptoms as she says she cannot take po pills or liquid without vomiting ( this has been an issue since age 10 per pt). She denies fever, chills, SOB, chest pain, vomiting. She does not feel dizzy or lightheaded and has never had any issues with anemia in the past. She has had ovarian cysts in the past, but denies uterine abnormalities. She has also had PID in the past. - History of Current Complaint Chief Complaint: UCGU Stated Complaint: STOMACH PAIN VAGINAL BLEEDING Time Seen by Provider: 01/01/19 16:48 Hx Obtained From: Patient Hx Last Menstrual Period: 05/01/15 Onset/Duration: Gradual Onset Severity Initially: Moderate Severity Currently: Severe Pain Intensity: 9 Pain Scale Used: 0-10 Numeric Allergies/Adverse Reactions: Allergies Allergy/AdvReac Type Severity Reaction Status Date / Time levothyroxine Allergy Unknown Verified 01/01/19 16:46 Reaction Details Home Medications: Home Medications Nature-Throid 01/01/19 [History] PMH/Surg Hx/FS Hx/Imm Hx Endocrine History: Thyroid Disease Other History Of: Negative For: Anticoagulant Therapy - Surgical History Surgical History: Yes Surgery Procedure, Year, and Place: RIGHT KNEE SURGERY 05/2010 - Family History Known Family History: Positive: Other - cancers Negative: Hypertension, Diabetes - Social History Lives: With Family Alcohol Use: Rare Alcohol Amount: "2 weeks ago for the first time 3 glasses of alcohol." Substance Use Type: Marijuana Substance Use Comment - Amount & Last Used: "Dab marijuana- pure THC". Smokes marijuana daily Smoking Status (MU): Never Smoked Tobacco Amount Used/How Often: Patient have not smoked tobacco or tobacco alternative within 30 days. When Did the Patient Quit Smoking/Using Tobacco: Patient have not smoked tobacco or tobacco alternative within 30 days. - Immunization History Most Recent Influenza Vaccination: Never had and declined same Most Recent Pneumonia Vaccination: Never had Review of Systems All Other Systems Reviewed And Are Negative: Yes Constitutional: Positive: Negative Skin: Positive: Negative Respiratory: Positive: Negative Cardiovascular: Positive: Negative Gastrointestinal: Positive: Abdominal Pain Genitourinary: Positive: Abnormal Bleeding Motor: Positive: Negative Neurological: Positive: Negative Psychological: Positive: Negative Physical Exam - Summary Physical Exam Summary: GENERAL: Tearful. Moderate pain distress. SKIN: No rashes, sores, lesions, or open wounds. NECK: Supple. Nontender. No lymphadenopathy. CHEST: CTAB. No r/r/w. No accessory muscle use. Breathing comfortably and in no distress. CV: RRR. Without m/r/g. Pulses intact. Cap refill <2seconds ABDOMEN: Moderate TTP lower abdomen. Mild TTP RUQ, LUQ, and epigastrum. Soft. No distention or guarding. No CVA tenderness. Bowel sounds present NEURO: Alert. PSYCH: Age appropriate behavior. Triage Information Reviewed: Yes Vital Signs: Initial Vital Signs Temp 100.3 F 01/01/19 16:31 Pulse 77 01/01/19 16:31 Resp 20 01/01/19 16:31 BP 131/88 01/01/19 16:31 Pulse Ox 100 01/01/19 16:31 Laboratory Tests 01/01/19 01/01/19 16:58 17:00 POC Urine Color Yellow POC Urine Clarity Clear POC Urine pH 6.0 POC Ur Specif [place] 1.015 POC Urine Protein Trace A POC Ur Glucose (UA) Negative POC Urine Ketones Trace A POC Urine Blood 3+ A POC Urine Nitrite Negative POC Urine Bilirubin Negative POC Urine Urobilinogen 0.2 POC U Leukocyte Esteras Negative POC Ur Test Negative Vital Signs Reviewed: Yes Abd Pain Female Course/Dx - Course Course Of Treatment: At the urgent care today, we have no abilities to perform stat labwork or ultrasound to appropriately evaluate pt's symptoms. She is in a moderate amount of pain distress and has a low grade fever of 100.3F. I am unsure the cause of pt's symptoms - she may have PID or an underlying pathology, but given her severity of bleeding and worsening pain - I believe she requires labwork and imaging to appropriately evaluate her condition. I discussed this at length with the patient and recommended that she be transferred to the ED via ambulance. She tells me that she does not want to go by ambulance and mentions that she does not want to go to [facility]. When asked about this, she says that she once went to [facility] for a mental health problem in the past and since that time if she goes, she feels the hospital staff treat her differently and do not "take her seriously". I discussed the option of going to the next closest hospital, which would be [facility]. She said that she would consider this, but continued to decline ambulance. In the clinic she was given Toradol IM as she cannot tolerate po medicine. She said that she "wants to go home and sleep". I discussed with her that her current condition seems that it could be very serious and if she does have PID could get a fever, worsening pain, vomiting, risk of infertility, and potential for sepsis, intraabdominal infection, or . Pt voiced understanding and continued to state she would think about going to the ED. The patient is clinically sober, free from distracting injury, appears to have intact insight, judgment, and reason, and in my opinion has the capacity to make decisions - Differential Dx/Diagnosis Provider Diagnosis: Lower abdominal pain, Vaginal bleeding Discharge - Sign-Out/Discharge Documenting (check all that apply): Patient Departure All imaging exams completed and their final reports reviewed: No Studies - Discharge Plan Condition: Stable Disposition: HOME-RECOMMEND TO ED Referrals: Jaswant Crane MD [Primary Care Provider] - Additional Instructions: Please go to the ER for further evaluation of your abdominal pain, heavy vaginal bleeding, and elevated temperature. I recommend you go to the nearest hospital, but if you decide to - [facility] is the next closest hospital - Billing Disposition and Condition Condition: STABLE Disposition: Home-Recommend to ED
[2019-01-01 16:57] VITALS: BP 131/88
[2019-01-01] MEDS ORDERED: Ketorolac INJ* 60 MG/2 ML VIAL IM ONE (17:15)
--- OUTSIDE RECORDS SUMMARY | 2019-01-01 17:45 | XMS REPORT | Continuity of Care Document ---
:1995 External Reference #:[id number] Author Name Maggi Thomson Care Team Providers Name Role Phone Patient's Choice Primary Care Physician Unavailable Payers Date Identification Numbers Payment Provider Subscriber Effective: Policy Number: [id number] [employer] Melanie Pruitt 2017 Group Number: [id number] [address] [address] Group Name: [place] [address] PayID: [id number] Advance Directives Description No Information Available Problems Description No Information Family History Date Family Member(s) Observation Comments General Cancer Social History Type Date Description Comments Sex Unknown Lives With Mother Occupation Currently Working ETOH Use Denies alcohol use Tobacco Use Start: Unknown Patient has never smoked Smoking Status Reviewed: 12/30/18 Patient has never smoked Exercise Type/Frequency Does not exercise Allergies, Adverse Reactions, Alerts Description No Known Drug Allergies Medications Active Medications SIG Qnty Indications Ordering Provider Date Nature-Throid Take 1 Tablet By Unknown 32.5mg Mouth Every Day Tablets Immunizations Description No Information Available Vital Signs Date Vital Result Comment 12/30/2018 3:27pm Height 63 inches 5'3" Weight 126.00 lb BP Systolic 120 mmHg BP Diastolic 88 mmHg Respiratory Rate 18 /min Body Temperature 98.7 F Pain Level 3 BMI (Body Mass Index) 22.3 kg/m2 Results Description No Information Available Procedures Description No Information Available Encounters Type Date Location Provider Dx Diagnosis Office Visit 06/08/2017 [facility] Razia Rodriguez, E03.9 Hypothyroidism, 3:22p Assdavid castano M.D. unspecified Hospitalists Plan of Treatment No Information Available
== END 2019-01-01 17:39 | disposition home health service (06) ==
LOC: UCEAST 16:26
DX: R10.30 Lower abdominal pain, unspecified (principal); R10.2 Pelvic and perineal pain; N93.9 Abnormal uterine and vaginal bleeding, unspecified; Z32.02 Encounter for pregnancy test, result negative; E07.9 Disorder of thyroid, unspecified; Z88.8 Allergy status to other drugs, medicaments and biological substances
CPT/HCPCS: 81003; 84702; 96372; 99212; G0463; J1885

== ENCOUNTER 2019-01-05 17:20 | Emergency (ER) | payer BC ==
[2019-01-05] MEDS ORDERED: Morphine 4 MG/ML VIAL (1 ml) 4 MG/ML VIAL IV ONE (18:20)
[2019-01-05] MEDS ORDERED: Ondansetron INJ* 2 MG/ML VIAL IV ONE (18:20)
[2019-01-05] MEDS ORDERED: NS 0.9% 1000 ML** 1,000 ML IV ONE (18:20)
[2019-01-05 18:58] LABS: ABS Eosinophils 0.1 10^3/ul (0-0.6); ABS Lymphocytes 1.5 10^3/ul (1.0-4.8); ABS Monocytes 0.3 10^3/ul (0-0.8); ABS Neutrophils 2.3 10^3/ul (1.5-7.7); Eosinophil % 1.4 %; Hematocrit 33 % (35-47); Hemoglobin 11.4 g/dL (12.0-16.0); Lymphocyte % 35.5 %; Mean Corpuscular HGB Conc 34 g/dL (31-36); Mean Corpuscular Hemoglobin 31 pg (27-31); Mean Corpuscular Volume 89 fL (80-97); Mean Platelet Volume 7.9 fL (7.4-10.4); Nucleated Red Blood Cells % 0.2; Platelet Count 193 10^3/uL (150-450); Red Blood Count 3.71 10^6 /uL (3.70-4.87); Red Cell Distribution Width 15 % (10.5-15); White Blood Count 4.2 10^3/uL (3.5-10.8)
[2019-01-05 19:14] LABS: ALT 34 U/L (7-52); AST 20 U/L (13-39); Albumin 4.2 g/dL (3.2-5.2); Albumin/Globulin Ratio 1.8 (1-3); Alkaline Phosphatase 34 U/L (34-104); Anion Gap 6 mmol/L (2-11); BUN/Creatinine Ratio 15.9 (8-20); Blood Urea Nitrogen 14 mg/dL (6-24); C Reactive Protein < 1.00 mg/L (<8.01); CO2 Carbon Dioxide 28 mmol/L (22-32); Chloride 105 mmol/L (101-111); EGFR African American 96.4 (>60); EGFR Non-African American 79.6 (>60); Globulin 2.3 g/dL (2-4); Glucose 109 mg/dL (70-100); Potassium 3.4 mmol/L (3.5-5.0); Sodium 139 mmol/L (135-145); Total Protein 6.5 g/dL (6.4-8.9)
[2019-01-05 19:20] LABS: HCG Pregnancy < 0.60 mIU/mL
--- NOTE | 2019-01-05 19:53 | ED ---
Abdominal Pain/Female - HPI Summary HPI Summary: Patient complains of bilateral lower abdominal pain and decreased by mouth intake 4 days. Abdominal pain is constant, decreased with position, increases with movement and standing. Seen at urgent care for same on 01/01/19 with negative urine, negative . Patient also complains of irregular periods with current heavy bleeding, and [facility]. [facility] at [facility] negative for cysts, normal IUD placement, negative urine. Ultrasound negative for abnormal findings. Denies fever, cough, sore throat, CP, SOB, N/V/D, change in urine, change in BM, vaginal discharge or vaginal pain. History of irregular periods. History of ovarian cysts. Abdominal surgical history is none. - History of Current Complaint Chief Complaint: EDAbdPain Stated Complaint: ABD PAIN PER PT Time Seen by Provider: 01/05/19 17:42 Hx Obtained From: Patient Hx Last Menstrual Period: 05/01/15 Onset/Duration: Gradual Onset, Lasting Days Timing: Constant Severity Initially: Severe Severity Currently: Severe Pain Intensity: 8 Pain Scale Used: 0-10 Numeric Location: Discrete At: RLQ, Discrete At: LLQ, Suprapubic Radiates: No Character: Sharp, Cramping Aggravating Factor(s): Movement Alleviating Factor(s): Position Associated Signs and Symptoms: Positive: Decreased Appetite. Negative: Back Pain Allergies/Adverse Reactions: Allergies Allergy/AdvReac Type Severity Reaction Status Date / Time levothyroxine Allergy Unknown Verified 01/05/19 17:28 Reaction Details PMH/Surg Hx/FS Hx/Imm Hx Endocrine/Hematology History: Reports: Hx Thyroid Disease Denies: Hx Anticoagulant Therapy, Hx Diabetes, Hx Anemia Cardiovascular History: Denies: Hx Hypertension, Hx Pacemaker/ICD Respiratory History: Denies: Hx Asthma, Hx Chronic Obstructive Pulmonary Disease (COPD) GI History: Denies: Hx Jaundice, Hx Ulcer History: Denies: Hx Renal Disease Sensory History: Denies: Hx Cataracts, Hx Contacts or Glasses, Hx Hearing Aid Opthamlomology History: Denies: Hx Cataracts, Hx Contacts or Glasses Neurological History: Denies: Hx Dementia, Hx Seizures Psychiatric History: Reports: Hx Panic Disorder - PANIC ATTACKS Denies: Hx Eating Disorder, Hx of Violent Episodes Against Others, Hx Substance Abuse - Surgical History Surgery Procedure, Year, and Place: RIGHT KNEE SURGERY 05/2010 Infectious Disease History: No Infectious Disease History: Denies: Hx Hepatitis, Hx Human Immunodeficiency Virus (HIV), Traveled Outside the [place] in Last 30 Days - Family History Known Family History: Positive: Other - cancers Negative: Hypertension, Diabetes - Social History Alcohol Use: None Alcohol Amount: "2 weeks ago for the first time 3 glasses of alcohol." Hx Substance Use: Yes Substance Use Type: Reports: Marijuana Substance Use Comment - Amount & Last Used: "Dab marijuana- pure THC". Smokes marijuana daily Hx Tobacco Use: No Smoking Status (MU): Never Smoked Tobacco Amount Used/How Often: Patient have not smoked tobacco or tobacco alternative within 30 days. Review of Systems Constitutional: Negative Eyes: Negative ENT: Negative Cardiovascular: Negative Respiratory: Negative Positive: Abdominal Pain Genitourinary: Negative Musculoskeletal: Negative Skin: Negative Neurological: Negative Psychological: Normal All Other Systems Reviewed And Are Negative: Yes Physical Exam - Summary Physical Exam Summary: Diffuse abdominal tenderness. Lung sounds clear to auscultation bilaterally. Triage Information Reviewed: Yes Vital Signs On Initial Exam: Initial Vitals Temp Pulse Resp BP Pulse Ox 98.2 F 83 20 114/97 98 01/05/19 17:24 01/05/19 17:24 01/05/19 17:24 01/05/19 17:24 01/05/19 17:24 Vital Signs Reviewed: Yes Appearance: Positive: Well-Appearing Skin: Positive: Warm Head/Face: Positive: Normal Head/Face Inspection Eyes: Positive: Normal Neck: Positive: Supple Respiratory/Lung Sounds: Positive: Clear to Auscultation Cardiovascular: Positive: Normal Abdomen Description: Positive: Other: Musculoskeletal: Positive: Normal Neurological: Positive: Normal Psychiatric: Positive: Normal AVPU Assessment: Alert - [place] Coma Scale Best Eye Response: 4 - Spontaneous Best Motor Response: 6 - Obeys Commands Best Verbal Response: 5 - Oriented Coma Scale Total: 15 Diagnostics - Vital Signs Vital Signs Temp Pulse Resp BP Pulse Ox 01/05/19 17:24 98.2 F 83 20 114/97 98 - Laboratory Lab Results: Lab Results 01/05/19 01/05/19 Range/Units 18:43 18:43 WBC 4.2 (3.5-10.8) 10^3/uL RBC 3.71 (3.70-4.87) 10^6 /uL Hgb 11.4 L (12.0-16.0) g/dL Hct 33 L (35-47) % MCV 89 (80-97) fL MCH 31 (27-31) pg MCHC 34 (31-36) g/dL RDW 15 (10.5-15) % Plt Count 193 (150-450) 10^3/uL MPV 7.9 (7.4-10.4) fL Neut % (Auto) 55.1 % Lymph % (Auto) 35.5 % [place] % (Auto) 7.0 % Eos % (Auto) 1.4 % Baso % (Auto) 1.0 % Absolute Neuts (auto) 2.3 (1.5-7.7) 10^3/ul Absolute Lymphs (auto) 1.5 (1.0-4.8) 10^3/ul Absolute Monos (auto) 0.3 (0-0.8) 10^3/ul Absolute Eos (auto) 0.1 (0-0.6) 10^3/ul Absolute Basos (auto) 0.0 (0-0.2) 10^3/ul Absolute Nucleated RBC 0.0 10^3/ul Nucleated RBC % 0.2 Sodium 139 (135-145) mmol/L Potassium 3.4 L (3.5-5.0) mmol/L Chloride 105 (101-111) mmol/L Carbon Dioxide 28 (22-32) mmol/L Anion Gap 6 (2-11) mmol/L BUN 14 (6-24) mg/dL Creatinine 0.88 (0.51-0.95) mg/dL Est GFR ( Amer) 96.4 (>60) Est GFR (Non-Af Amer) 79.6 (>60) BUN/Creatinine Ratio 15.9 (8-20) Glucose 109 H (70-100) mg/dL Calcium 9.0 (8.6-10.3) mg/dL Total Bilirubin 0.80 (0.2-1.0) mg/dL AST 20 (13-39) U/L ALT 34 (7-52) U/L Alkaline Phosphatase 34 (34-104) U/L C-Reactive Protein < 1.00 (<8.01) mg/L Total Protein 6.5 (6.4-8.9) g/dL Albumin 4.2 (3.2-5.2) g/dL Globulin 2.3 (2-4) g/dL Albumin/Globulin Ratio 1.8 (1-3) Beta HCG, Quant < 0.60 mIU/mL Result Diagrams: 01/05/19 18:43 01/05/19 18:43 Lab Statement: Any lab studies that have been ordered have been reviewed, and results considered in the medical decision making process. Abdominal Pain Fem Course/Dx - Course Course Of Treatment: Patient complains of bilateral lower abdominal pain and decreased by mouth intake 4 days. Abdominal pain is constant, decreased with position, increases with movement and standing. Seen at urgent care for same on 01/01/19 with negative urine, negative . Patient also complains of irregular periods with current heavy bleeding, and [facility]. [facility] at [facility] negative for cysts, normal IUD placement, negative urine. Ultrasound negative for abnormal findings. Denies fever, cough, sore throat, CP, SOB, N/V/D, change in urine, change in BM, vaginal discharge or vaginal pain. History of irregular periods. History of ovarian cysts. Abdominal surgical history is none. Physical exam:Diffuse abdominal tenderness. Lung sounds clear to auscultation bilaterally. Vital signs within normal limits. Labs unremarkable. Ultrasound gallbladder normal. - Diagnoses Provider Diagnoses: Ovarian cyst Discharge - Sign-Out/Discharge Documenting (check all that apply): Patient Departure Patient Received Moderate/Deep Sedation with Procedure: No - Discharge Plan Condition: Stable Disposition: HOME Patient Education Materials: Ovarian Cyst (ED) Referrals: No Primary Care Phys,NOPCP [Primary Care Provider] - Wale Rodriguez MD [Medical Doctor] - Additional Instructions: Follow up with [facility] for recurring ovarian cysts. Return to the ED for any new or worsening symptoms. - Billing Disposition and Condition Condition: STABLE Disposition: Home
[2019-01-05 20:37] LABS: Urine Appearance Cloudy; Urine Bacteria Absent (Absent); Urine Bilirubin Negative (Negative); Urine Blood 2+ (Negative); Urine Color Yellow; Urine Glucose Negative (Negative); Urine Ketones Negative (Negative); Urine Nitrite Negative (Negative); Urine Protein Negative (Negative); Urine Red Blood Cell Trace(0-2/hpf) (Absent); Urine Specific Gravity 1.012 (1.010-1.030); Urine Squamous Epithelial Cell Present (Absent); Urine Urobilinogen Negative (Negative); Urine White Blood Cell Trace(0-5/hpf) (Absent)
[2019-01-05] MEDS ORDERED: Iohexol 300* (CONTRAST) 10 ML SDV IV ONE (20:38)
[2019-01-05] MEDS ORDERED: Ketorolac INJ* 30 MG/ML 1 ML VIAL IV ONE (21:46)
[2019-01-05 22:04] VITALS: BP 106/65
== END 2019-01-05 22:07 | disposition home or self-care (01) ==
LOC: ED 17:20
DX: N83.209 Unspecified ovarian cyst, unspecified side (principal); R10.30 Lower abdominal pain, unspecified; F12.90 Cannabis use, unspecified, uncomplicated; Z86.39 Personal history of other endocrine, nutritional and metabolic disease
CPT/HCPCS: 36415; 74177; 76830; 80053; 81003; 81015; 84702; 85025; 86140; 87086; 96374; 96375; 99282; J1885; J2270; J2405; Q9967